=== PATIENT | male | born 1985 | race African-American/Black ===

== ENCOUNTER 2025-04-21 09:28 | Emergency (ER) | payer MEDICAID ==
[~2025-04-21] VITALS: Ht 177.8 cm; Wt 100.0 kg
[2025-04-21 09:31] VITALS: O2SAT 98
[2025-04-21] MEDS ORDERED: AMLO5TAB88 MT (09:42)
[2025-04-21 09:49] VITALS: BP 193/126; PULSE 72; RESP 16; TEMP 36.8; O2SAT 97
== END 2025-04-21 10:02 | disposition home or self-care (01) ==
LOC: ER 09:28
DX: I10 Essential (primary) hypertension (principal); F20.9 Schizophrenia, unspecified
CPT/HCPCS: 93005; 99283